=== PATIENT | female | born 1950 | race Caucasian/White ===

== ENCOUNTER 2017-01-28 04:51 | Emergency (ER) | payer OTHER ==
[2017-01-28 05:00] VITALS: RESP 16
[2017-01-28] MEDS ORDERED: KETOROLAC 30 MG/1 ML SDV IM ONE (05:21)
--- NOTE | 2017-01-28 05:28 | EDPHY ---
H & P Stated Complaint: c/o L hip pain x approx 1 month, pt says pain has become severe overnight Time Seen by Provider: 01/28/17 05:06 HPI/ROS: HPI The patient presents with left hip pain which has been intermittent for the last 1 month but became worse tonight after an episode of sneezing. The pain it is in the anterior portion of her hip, it is worse upon hip flexion, it is a stabbing pain which does not radiate. It is worse with walking. Tonight while sneezing the pain became acutely worse. She took 1 g of Tylenol at approximately 4:00 a.m. which did not help much. She denies any weakness, numbness, skin changes. She is status post hip replacement performed [address] Cui. REVIEW OF SYSTEMS Constitutional: No fever, no chills. Eyes: No discharge. ENT: No sore throat. Cardiovascular: No chest pain, no palpitations. Respiratory: No cough, no shortness of breath. Gastrointestinal: No abdominal pain, no vomiting. Genitourinary: No hematuria. Musculoskeletal: No back pain. Skin: No rashes. Neurological: No headache. PMHx: Status post bilateral hip replacement Soc Hx: Lives with her PHYSICAL General Appearance: Alert, no distress Eyes: Pupils equal and round no pallor or injection ENT, Mouth: Mucous membranes moist Respiratory: There are no retractions, lungs are clear to auscultation Cardiovascular: Regular rate and rhythm Gastrointestinal: Abdomen is soft and non-tender, no masses, bowel sounds normal Neurological: A&O, moves all extremities Skin: Warm and dry, no rashes Musculoskeletal: Neck is supple non tender Extremities: Left hip without tenderness, pain with flexion, full range of motion, sensation intact to light touch, 2+ DP pulses Psychiatric: Patient is oriented X 3, there is no agitation Source: Patient Exam Limitations: No limitations - Medical/Surgical History Hx Asthma: No Hx Chronic Respiratory Disease: No Hx Diabetes: No Hx Cardiac Disease: No Hx Renal Disease: No Hx Cirrhosis: No Hx Alcoholism: No Hx HIV/AIDS: No Hx Splenectomy or Spleen Trauma: No Other PMH: OA, iritis, bilat BRIAN, orif L ankle, hysterectomy, cholecystectomy - Social History Smoking Status: Former smoker Constitutional: Initial Vital Signs Temperature (C) 36.9 C 01/28/17 04:55 Heart Rate 104 H 04/11/17 04:55 Respiratory Rate 16 01/28/17 04:55 Blood Pressure 138/96 H 01/28/17 04:55 O2 Sat (%) 94 01/28/17 04:55 O2 Delivery Mode Room Air Allergies/Adverse Reactions: No Allergies Allergy (Verified 01/28/17 05:00) Home Medications: Medication Instructions Recorded Acetaminophen [Tylenol 325mg (*)] 325 - 650 mg PO Q6 PRN #60 tab 01/26/15 Hydrocodone/APAP 5/325 [[place] 1 - 2 tab PO Q6H PRN #15 tab 01/28/17 5/325 (*)] Medical Decision Making - Diagnostics Imaging: X-ray left hip three views shows no fracture, no dislocation, interpreted by me , radiology interpretation is pending. Differential Diagnosis: This is a 66-year-old female who is 2 years status post bilateral hip replacements for osteoarthritis, she now presents with intermittent left hip pain, worse over the last 1 day. Differential diagnosis includes worsening arthritis, hardware malfunction, less likely septic joint given lack of fever and normal passive range of motion. In the emergency room, the patient was given Toradol and morphine with improvement in her symptoms. X-ray was performed and was unremarkable. She will be discharged with follow up with her orthopedist in the next few days. She was able to walk without much difficulty. - Data Points Medications Given: Discontinued Medications Hydrocodone Bitart/Acetaminophen ([place] 5/325mg Prepack#6) 1 btl TAKEHOME EDNOW ONE Stop: 01/28/17 06:13 Last Admin: 01/28/17 06:15 Dose: 1 btl Ketorolac Tromethamine (Toradol) 30 mg IM EDNOW ONE Stop: 01/28/17 05:22 Last Admin: 01/28/17 05:34 Dose: 30 mg Morphine Sulfate (Morphine) 6 mg IM EDNOW ONE Stop: 01/28/17 05:22 Last Admin: 01/28/17 05:34 Dose: 6 mg Departure - Departure Disposition: Home, Routine, Self-Care Clinical Impression: Hip pain, left, H/O total hip arthroplasty Condition: Good Instructions: Hydrocodone/Acetaminophen (By mouth), Hip Pain (ED) Additional Instructions: Please return to the emergency room if your worse in any way. You should take ibuprofen 400 mg every 6 hours for pain. If your pain is still severe, you can take the [place]. Referrals: Jimena Valerio MD [Primary Care Provider] - As per Instructions Judith Cui MD [Medical Doctor] - As per Instructions Prescriptions: Hydrocodone/APAP 5/325 [[place] 5/325 (*)] 1 - 2 tab PO Q6H PRN #15 tab PRN Reason: Pain, Breakthrough
[2017-01-28] MEDS ORDERED: HYDROCOD/APAP 5/325 PREPACK#6 BTL TAKEHOME ONE (06:12)
[2017-01-28 06:31] VITALS: BP 134/88; PULSE 102; TEMP 98.1; O2SAT 97
--- NOTE | 2017-01-28 11:47 | EDPHY ---
ED Progress Note Narrative: 11:45 a.m.: I spoke with the patient via phone and explained the findings from Radiology of the left hip showing possible loosening of the shaft component on her hardware. Her orthopedic surgeon is Dr. Hong Cui. I encouraged her to call Dr. Hong Cui to arrange for a timely follow-up appointment. Patient verbalized understanding and agreed.
== END 2017-01-28 06:30 | disposition home or self-care (01) ==
DX: M25.552 Pain in left hip (principal); Z87.891 Personal history of nicotine dependence; Z96.641 Presence of right artificial hip joint
CPT/HCPCS: J1885